=== PATIENT | male | born 1955 | race Caucasian/White ===

== ENCOUNTER 2017-05-20 15:08 | Emergency (ER) | payer OTHER ==
[~2017-05-20] VITALS: Ht 182.9 cm; Wt 89.8 kg
[~2017-05-20 15:08] MED LIST: ABSORICA PO; FLOMAX PO; KEFLEX500 MG PO; NOHOMEMEDICATIONS; NORCO 5-325 TA1 EACH PO; ORACEA40 MG PO; PERCOCET 5-3251 EACH PO; POTASSIUM CITRATE; TOBREX5 ML OP; ZOFRAN 4 MG ORAL4 M1 DIS; [UNRECOGNIZED DRUG - OTHER]
[2017-05-20] MEDS ORDERED: LISINOPRIL5 MG PO (15:28)
[2017-05-20] MEDS ORDERED: UROCIT-K10 ME1 PO (15:29)
[2017-05-20 16:39] LABS: URINE BLOOD 3+ (Negative); URINE CLARITY CLEAR; URINE COLOR YELLOW; URINE GLUCOSE-RANDOM NEGATIVE (Negative); URINE KETONES 2+ (Negative); URINE LEUKOCYTES-REFLEX NEGATIVE (Negative); URINE NITRITE-REFLEX NEGATIVE (Negative); URINE PROTEIN TRACE (Negative); URINE SPECIFIC GRAVITY >= 1.030 (1.005-1.030); URINE UROBILINOGEN 0.2 E.U./dl (0.2-1.0)
[2017-05-20 16:41] LABS: ICTOTEST (BILI CONFIRMATORY) Negative (Negative); URINE BILIRUBIN 1+ (Negative)
[2017-05-20 16:47] LABS: MUCUS 0-3 Light strn/LPF (None Seen); SQUAMOUS 0-3 Few /LPF (0-3); URINE RBC >20 Many /HPF (0-2)
[2017-05-20 16:48] LABS: BACTERIA-REFLEX 1-9 Few /HPF (None Seen); CASTS None Seen /LPF (None Seen); CRYSTALS None Seen /LPF (None Seen); URINE WBC-REFLEX 0-5 Rare /HPF (0-5)
[2017-05-20 16:57] LABS: HEMATOCRIT 39.6 % (42.0-52.0); HEMOGLOBIN 12.2 gm/dL (14.0-18.0); MCH 18.8 pg (26.0-34.0); MCHC 30.8 g/dL (28.0-37.0); MCV 61.2 fL (80.0-100.0); MPV 8.9 fl. (7.2-11.1); NUCLEATED RBCS 0 /100WBC; PLATELET COUNT* 221 thou/uL (150-400); RBC 6.47 mil/uL (4.50-6.00); RDW-CV 16.2 % (10.5-14.5); WBC 13.8 thou/uL (4.0-11.0)
[2017-05-20 17:04] LABS: CALCIUM 9.1 mg/dL (8.5-10.1); CREATININE 1.3 mg/dL (0.6-1.3)
[2017-05-20 17:09] LABS: ALBUMIN 4.4 g/dL (3.4-5.0); TOTAL BILIRUBIN 1.1 mg/dL (<0.1-1.0); TOTAL PROTEIN 7.6 g/dL (6.4-8.2)
[2017-05-20 17:30] LABS: ABSOLUTE EOSINOPHILS 0.1 thou/uL (0.0-0.7); ABSOLUTE LYMPHOCYTES 0.8 thou/uL (0.8-5.3); ABSOLUTE MONOCYTES 1.2 thou/uL (0.0-1.2); ABSOLUTE NEUTROPHILS 11.6 thou/uL (1.6-8.1)
[2017-05-20 17:31] LABS: HYPOCHROMASIA 1+; PLATELET ESTIMATE ADEQUATE
[2017-05-20 17:32] LABS: MICROCYTES 2+
[2017-05-20] MEDS ORDERED: ONDANSETRON HCL4 M2 PO (17:46)
[2017-05-20] MEDS ORDERED: FLOMAX0.4 MG PO (17:46)
[2017-05-20] MEDS ORDERED: PERCOCET 5-3251 EACH PO (17:46)
[2017-05-20 18:14] VITALS: BP 151/84
== END 2017-05-20 18:15 | disposition home or self-care (01) ==
LOC: M.ERS 15:08
PROVIDERS: Emergency Medicine Emergency Medical Services; Nurse Practitioner Family
DX: N20.0 Calculus of kidney (principal); Z88.5 Allergy status to narcotic agent; Z88.0 Allergy status to penicillin; Z88.8 Allergy status to other drugs, medicaments and biological substances

== ENCOUNTER → 2021-01-26 | Outpatient (CLI) | payer OTHER ==
[~2021-01-26] MED LIST changes: +FLOMAX0.4 MG PO; +LISINOPRIL5 MG PO; +ONDANSETRON HCL4 M2 PO; +UROCIT-K10 ME1 PO
== END ==
LOC: M.RAD 08:09
PROVIDERS: ATTEND Internal Medicine
DX: R91.1 Solitary pulmonary nodule (principal)